=== PATIENT | female | born 1990 | race African-American/Black ===

== ENCOUNTER 2016-11-16 12:13 | Emergency (ER) | payer SELFPAY ==
[~2016-11-16] VITALS: Ht 170.2 cm; Wt 101.0 kg
[2016-11-16 15:53] VITALS: BP 107/60
[2016-11-16] MEDS ORDERED: SODIUM CHLORIDE 0.9% 1,000 ML IV ONE (17:12)
[2016-11-16] MEDS ORDERED: KETOROLAC 30MG/ML VIAL IV STA (17:12)
[2016-11-16] MEDS ORDERED: ONDANSETRON HCL 4MG/2ML VIAL IV STA (17:12)
== END 2016-11-16 17:31 | disposition left against medical advice (07) ==
LOC: ER 15:21
DX: R19.7 Diarrhea, unspecified (principal); R11.10 Vomiting, unspecified; R10.9 Unspecified abdominal pain; J45.909 Unspecified asthma, uncomplicated
CPT/HCPCS: 81025; 99282; J7030; Z7610; J1885; J2405

== ENCOUNTER 2016-11-21 10:09 | Emergency (ER) | payer SELFPAY ==
[~2016-11-21] VITALS: Ht 172.7 cm; Wt 100.0 kg
[2016-11-21 10:30] VITALS: BP 99/63
== END 2016-11-21 10:58 | disposition home or self-care (01) ==
LOC: ER 10:20
DX: M54.2 Cervicalgia (principal); J45.909 Unspecified asthma, uncomplicated; D64.9 Anemia, unspecified; Y09 Assault by unspecified means
CPT/HCPCS: 99283

== ENCOUNTER 2017-04-22 06:16 | Emergency (ER) | payer SELFPAY ==
[~2017-04-22] VITALS: Ht 170.2 cm; Wt 100.0 kg
[2017-04-22 06:32] VITALS: BP 132/76
== END 2017-04-22 09:41 | disposition left against medical advice (07) ==
LOC: ER 07:52
DX: Z53.21 Procedure and treatment not carried out due to patient leaving prior to being seen by health care provider (principal)

== ENCOUNTER 2023-05-01 16:54 | Emergency (ER) | payer MEDICAID, OTHER ==
[~2023-05-01] VITALS: Ht 162.6 cm; Wt 82.0 kg
[2023-05-01] MEDS ORDERED: MORPHINE SULFATE 4 MG/ML CPJ (NOT FOR IM USE) IV STA (17:00)
[2023-05-01] MEDS ORDERED: KETOROLAC 30MG/ML VIAL IV STA (17:00)
[2023-05-01] MEDS ORDERED: ONDANSETRON HCL 4MG/2ML INJ IV STA (17:00)
[2023-05-01 17:04] VITALS: BP 100/40; PULSE 65; RESP 18; TEMP 97.4; O2SAT 99
== END 2023-05-01 18:55 | disposition left against medical advice (07) ==
LOC: ER 16:54
DX: K80.20 Calculus of gallbladder without cholecystitis without obstruction (principal); F12.10 Cannabis abuse, uncomplicated; J45.909 Unspecified asthma, uncomplicated; Z53.21 Procedure and treatment not carried out due to patient leaving prior to being seen by health care provider; Z98.890 Other specified postprocedural states
CPT/HCPCS: 76705; 99284